=== PATIENT | male | born 1935 | race Caucasian/White ===

== ENCOUNTER 2020-08-20 18:08 | Inpatient (IN) | payer MEDICARE, OTHER ==
[~2020-08-20] VITALS: Ht 182.9 cm; Wt 73.5 kg
[2020-08-20 19:15] LABS: RED BLOOD COUNT 3.59 M/UL (4.20-5.50); WHITE BLOOD COUNT 10.9 K/UL (4.5-11.0)
[2020-08-20 19:30] LABS: BUN/CREATININE RATIO 24 (0-10)
[2020-08-21] MEDS ORDERED: LOSARTAN POTAS100 MG PO (00:33)
[2020-08-21] MEDS ORDERED: AMLODIPINE BESYL5 MG PO (00:33)
[2020-08-21] MEDS ORDERED: ESCITALOPRAM OX10 MG PO (00:33)
[2020-08-21] MEDS ORDERED: CLOPIDOGREL75 MG PO (00:33)
[2020-08-21] MEDS ORDERED: PROTONIX 40 MG40 M1 PO (00:34)
[2020-08-21] MEDS ORDERED: ATORVASTATIN CA40 MG PO (00:34)
[2020-08-21] MEDS ORDERED: OXYCODONE HCL10 MG PO (00:34)
[2020-08-21 06:01] LABS: HEMOGLOBIN 11.3 gm/dl (14.0-17.5); RED BLOOD COUNT 3.75 M/UL (4.20-5.50); WHITE BLOOD COUNT 9.3 K/UL (4.5-11.0)
[2020-08-22 03:21] LABS: HEMOGLOBIN 11.5 gm/dl (14.0-17.5); RED BLOOD COUNT 3.84 M/UL (4.20-5.50); WHITE BLOOD COUNT 8.7 K/UL (4.5-11.0)
[2020-08-22 03:48] LABS: BUN/CREATININE RATIO 26 (0-10)
--- NOTE | 2020-08-22 15:40 | NUR ---
1540 O2 Sat 85% on room air.
[2020-08-22] MEDS ORDERED: SYMBICORT 80-41 INHA INH (15:43)
[2020-08-22] MEDS ORDERED: LEVOFLOXACIN500 MG PO (15:43)
[2020-08-22] MEDS ORDERED: LOPRESSOR 25 MG25 MG PO (15:43)
[2020-08-22] MEDS ORDERED: AMLODIPINE BESYL5 MG PO (15:43)
[2020-08-22] MEDS ORDERED: COMBIVENT RESPIM4 GM INH (15:43)
== END 2020-08-22 17:20 | disposition home health service (06) | DRG 682 ==
LOC: ER1 18:08 → CDU 22:33 → M/S 22:33
PROVIDERS: Emergency Medicine; Internal Medicine Infectious Disease; ADMIT Internal Medicine
DX: N17.9 Acute kidney failure, unspecified (principal); J18.9 Pneumonia, unspecified organism; J96.21 Acute and chronic respiratory failure with hypoxia; J98.11 Atelectasis; J44.0 Chronic obstructive pulmonary disease with (acute) lower respiratory infection; E87.6 Hypokalemia; I73.9 Peripheral vascular disease, unspecified; R29.6 Repeated falls; Z20.822 Contact with and (suspected) exposure to COVID-19; I25.10 Atherosclerotic heart disease of native coronary artery without angina pectoris; I12.9 Hypertensive chronic kidney disease with stage 1 through stage 4 chronic kidney disease, or unspecified chronic kidney disease; R53.1 Weakness; N18.30 Chronic kidney disease, stage 3 unspecified; Z95.1 Presence of aortocoronary bypass graft; Z72.0 Tobacco use; Z87.11 Personal history of peptic ulcer disease; Z90.49 Acquired absence of other specified parts of digestive tract; Z82.49 Family history of ischemic heart disease and other diseases of the circulatory system
CPT/HCPCS: ECHO; 0240U; 36415; 36600; 70450; 71045; 71046; 73080; 80048; 80053; 81001; 82550; 82553; 82803; 83605; 83690; 83735; 83874; 83880; 84439; 84443; 84484; 85025; 85610; 93306; 94640; 94664; 94760; 97161; 97166; 99285; J0456; J0696; J1650; J7030

== ENCOUNTER → 2021-04-14 | Outpatient (CLI) | payer MEDICARE, OTHER ==
[~2021-04-14] MED LIST: AMLODIPINE BESYL5 MG PO; ATORVASTATIN CA40 MG PO; CLOPIDOGREL75 MG PO; COMBIVENT RESPIM4 GM INH; ESCITALOPRAM OX10 MG PO; LEVOFLOXACIN500 MG PO; LOPRESSOR 25 MG25 MG PO; LOSARTAN POTAS100 MG PO; OXYCODONE HCL10 MG PO; PROTONIX 40 MG40 M1 PO; SYMBICORT 80-41 INHA INH
== END ==
LOC: KOH-I 13:24
DX: M79.671 Pain in right foot (principal); M79.672 Pain in left foot; M19.071 Primary osteoarthritis, right ankle and foot
CPT/HCPCS: 73630